=== PATIENT | male | born 1990 | race Caucasian/White ===

== ENCOUNTER 2022-09-20 09:03 | Emergency (ER) | payer MEDICAID, OTHER ==
[~2022-09-20] VITALS: Ht 175.3 cm; Wt 99.3 kg
[2022-09-20] MEDS ORDERED: IBUPROFEN 400 MG TABLET ONE ×2 (09:54→09:59)
--- NOTE | 2022-09-20 09:55 | NUR ---
MOTRIN PO GIVEN INDICATED, AUGUSTINE WELL
[2022-09-20] MEDS ORDERED: IBUPROFEN 400 MG TABLET PO ONE (10:00)
[2022-09-20] MEDS ORDERED: IBUP-1957 PO (11:11)
[2022-09-20] MEDS ORDERED: CYCL10TA9 PO (11:11)
--- NOTE | 2022-09-20 11:20 | NUR ---
SHOULDER SLING APPLIED TO PT.
--- NOTE | 2022-09-20 11:27 | NUR ---
Patient discharged to home in stable condition. Written and verbal after care instructions given. Patient verbalizes understanding of instruction.
[2022-09-20 11:28] VITALS: BP 132/80
== END 2022-09-20 11:28 | disposition home or self-care (01) ==
LOC: ER 09:10
DX: M25.511 Pain in right shoulder (principal); Z79.899 Other long term (current) drug therapy
CPT/HCPCS: 73030-TC